=== PATIENT | female | born 1980 | race Two or more races ===

== ENCOUNTER 2017-08-23 01:05 | Emergency (ER) | payer SELFPAY ==
[2017-08-23 01:12] VITALS: BP 182/106
== END 2017-08-23 03:45 | disposition home or self-care (01) ==
LOC: ED 01:05
DX: S93.402A Sprain of unspecified ligament of left ankle, initial encounter (principal); S33.5XXA Sprain of ligaments of lumbar spine, initial encounter; Z88.0 Allergy status to penicillin; W01.0XXA Fall on same level from slipping, tripping and stumbling without subsequent striking against object, initial encounter; Y93.89 Activity, other specified; Y92.89 Other specified places as the place of occurrence of the external cause; Y99.8 Other external cause status
CPT/HCPCS: Q0092